=== PATIENT | male | born 1995 | race Two or more races ===

== ENCOUNTER 2023-01-25 08:25 | Outpatient (CLI) | payer MEDICAID, SELFPAY | END 2023-01-25 08:26 | disposition home or self-care (01) | LOC: NFLDREF 01-27 12:38 | PROVIDERS: Visit Provider Family Medicine | DX: Z13.1 Encounter for screening for diabetes mellitus (principal); Z13.6 Encounter for screening for cardiovascular disorders | CPT/HCPCS: 80061; 82947 ==